=== PATIENT | female | born 1970 | race Caucasian/White ===

== ENCOUNTER 2018-11-20 10:13 | Emergency (ER) | payer MEDICAID ==
--- NOTE | 2018-11-20 11:09 | ED Physician Chart ---
ED Chief Complaint/HPI - Patient Information Date Seen:: 11/20/18 Time Seen:: 10:34 Chief Complaint:: RASH History of Present Illness:: THIS IS A 48 YO FEMALE WHO STATES THAT SHE HAS A RASH THAT STARTED THREE DAYS AGO ON HER LEFT LOWER LEG. SHE DENIES ANY OTHER AREAS OF RASH. SHE DENIES ANY SPECIFIC CONTACT OR FOOD ALLERGIES. SHE ADMITS TO DIABETES AND HYPERTENSION. SHE STATES THAT SHE STOPPED USING METH ABOUT SIX MONTHS AGO. Allergies:: Allergies Allergy/AdvReac Type Severity Reaction Status Date / Time No Known Allergies Allergy Verified 11/20/18 10:28 Vitals:: Vital Signs - 8 hr 11/20/18 10:29 Temp 97.1 F HR 86 RR 16 BP 105/69 O2 Sat % 95 Historian:: Patient Review:: Nurse's Note Reviewed, Old Chart Reviewed ED Review of Systems - Review of Systems General/Constitutional: No fever, No chills, No weight loss, No weakness, No diaphoresis, No edema, No loss of appetite Skin: No skin lesions, Rash, No bruising Head: No headache, No light-headedness Eyes: No loss of vision, No pain, No diplopia ENT: No earache, No nasal drainage, No sore throat, No tinnitus Neck: No neck pain, No swelling, No thyromegaly, No stiffness, No mass noted Cardio Vascular: No chest pain, No palpitations, No PND, No orthopnea, No edema Pulmonary: No SOB, No cough, No sputum, No wheezing GI: No nausea, No vomiting, No diarrhea, No pain, No melena, No hematochezia, No constipation, No hematemesis G/U: No dysuria, No frequency, No hematuria Musculoskeletal: No bone or joint pain, No back pain, No muscle pain Endocrine: No polyuria, No polydipsia Psychiatric: No prior psych history, No depression, No anxiety, No suicidal ideation Hematopoietic: No bruising, No lymphadenopathy Allergic/Immuno: No urticaria, No angioedema Neurological: No syncope, No focal symptoms, No weakness, No paresthesia, No headache, No seizure, No dizziness, No confusion, No vertigo ED Past Medical History - Past Medical History Obtainable: Yes Past Medical History: HTN, DM, Other (SKIN CANCER RECENTLY REMOVED FROM HER UPPER CHEST WALL AREA.) Family History: Diabetes Melitus (MOTHER) Social History: Smoker, Alcohol, No Drug Use, Employed Surgical History: None Psychiatricy History: None Medication: Reviewed Family Medical History - Family Member Father History Unknown: Yes ED Physical Exam - Physical Examination General/Constitutional: Awake, Well-developed, well-nourished, Alert, No distress, GCS 15, Non-toxic appearing, Ambulatory Head: Atraumatic Eyes: Lids, conjuctiva normal, PERRL, EOMI Skin: Nl inspection, No skin lesions, No ecchymosis, Well hydrated, No lymphadenopathy Other Skin comments:: THERE IS RASH ON THE LEFT MEDIAL ASPECT OG THE LOWER LEG AND EXTENDS DOWN TO THE ANKLE AREA. SEVERAL PATCHES OF RINGS. ENMT: External ears, nose nl, Nasal exam nl, Lips, teeth, gums nl Neck: Nontender, Full ROM w/o pain, No JVD, No nuchal rigidity, No bruit, No mass, No stridor Respiratory: Nl effort/Exclusion, Clear to Auscultation, No Wheeze/Rhonchi/Rales Cardio Vascular: RRR, No murmur, gallop, rubs, NL S1 S2 GI: No tenderness/rebounding/guarding, No organomegaly, No hernia, Normal BS's, Nondistended, No mass/bruits, No McBurney tenderness : No CVA tenderness Extremities: No tenderness or effusion, Full ROM, normal strength in all extremities, No edema, Normal digits & nails Neuro/Psych: Alert/oriented, DTR's symmetric, Normal sensory exam, Normal motor strength, Judgement/insight normal, Mood normal, Normal gait, No focal deficits Misc: Normal back, No paraspinal tenderness ED Assessment - Assessment General Assessment: FUNGAL RASH ED Septic Shock - . Is Septic Shock (SBP<90, OR Lactate>4 mmol\L) present?: No - <6hrs of presentation: Vital Signs: Vital Signs - 8 hr 11/20/18 10:29 Temp 97.1 F HR 86 RR 16 BP 105/69 O2 Sat % 95 ED Reassessment (Disposition) - Reassessment Reassessment Condition:: Unchanged - Diagnosis Diagnosis:: RASH OF THE LEFT LOWER LEG (FUNGAL) - Aftercare/Follow up Instructions Aftercare/Follow-Up Instructions:: Counseled pt regarding lab results/diagnosis & need follow up, Refer to Discharge Instructions, Counseled pt & family regarding lab results/diagnosis & need follow up Medication Prescribed:: diflucan, lamisil - Patient Disposition Discharge/Transfer:: Home Condition at Disposition:: Unchanged
== END 2018-11-20 11:25 | disposition home or self-care (01) ==
LOC: ER 10:13
DX: B36.9 Superficial mycosis, unspecified (principal); R21 Rash and other nonspecific skin eruption; I10 Essential (primary) hypertension; E11.9 Type 2 diabetes mellitus without complications; F17.200 Nicotine dependence, unspecified, uncomplicated
CPT/HCPCS: Z7502

== ENCOUNTER 2018-11-29 02:14 | Emergency (ER) | payer MEDICAID ==
--- NOTE | 2018-11-29 02:49 | ED Physician Chart ---
ED Chief Complaint/HPI - Patient Information Date Seen:: 11/29/18 Time Seen:: 02:44 Chief Complaint:: rash History of Present Illness:: 48 yr old female with rash legs buttock very itchy lasting one wk given lamisil by dr harrison and given keflex another time by another doctor without relief pt diabetic on invokana Allergies:: Allergies Allergy/AdvReac Type Severity Reaction Status Date / Time No Known Allergies Allergy Verified 11/29/18 02:24 Vitals:: Vital Signs - 8 hr 11/29/18 02:20 Temp 98.8 F HR 105 RR 18 BP 135/80 O2 Sat % 97 ED Review of Systems - Review of Systems General/Constitutional: No fever, No chills, No weight loss, No weakness, No diaphoresis, No edema, No loss of appetite Skin: Skin lesions Head: No headache, No light-headedness Eyes: No loss of vision, No pain, No diplopia ENT: No earache, No nasal drainage, No sore throat, No tinnitus Neck: No neck pain, No swelling, No thyromegaly, No stiffness, No mass noted Cardio Vascular: No chest pain, No palpitations, No PND, No orthopnea, No edema Pulmonary: No SOB, No cough, No sputum, No wheezing GI: No nausea, No vomiting, No diarrhea, No pain, No melena, No hematochezia, No constipation, No hematemesis G/U: No dysuria, No frequency, No hematuria Musculoskeletal: No bone or joint pain, No back pain, No muscle pain Endocrine: No polyuria, No polydipsia Psychiatric: No prior psych history, No depression, No anxiety, No suicidal ideation Hematopoietic: No bruising, No lymphadenopathy Allergic/Immuno: No urticaria, No angioedema Neurological: No syncope, No focal symptoms, No weakness, No paresthesia, No headache, No seizure, No dizziness, No confusion, No vertigo ED Past Medical History - Past Medical History Past Medical History: DM Family Medical History - Family Member Father History Unknown: Yes ED Physical Exam - Physical Examination General/Constitutional: Awake, Well-developed, well-nourished, Alert, No distress, GCS 15, Non-toxic appearing, Ambulatory Head: Atraumatic Eyes: Lids, conjuctiva normal, PERRL, EOMI Skin: Well hydrated, No lymphadenopathy Other Skin comments:: rash rt lower leg lt arm and buttocks ENMT: External ears, nose nl, Nasal exam nl, Lips, teeth, gums nl Neck: Nontender, Full ROM w/o pain, No JVD, No nuchal rigidity, No bruit, No mass, No stridor Respiratory: Nl effort/Exclusion, Clear to Auscultation, No Wheeze/Rhonchi/Rales Cardio Vascular: RRR, No murmur, gallop, rubs, NL S1 S2 GI: No tenderness/rebounding/guarding, No organomegaly, No hernia, Normal BS's, Nondistended, No mass/bruits, No McBurney tenderness : No CVA tenderness Extremities: No tenderness or effusion, Full ROM, normal strength in all extremities, No edema, Normal digits & nails Neuro/Psych: Alert/oriented, DTR's symmetric, Normal sensory exam, Normal motor strength, Judgement/insight normal, Mood normal, Normal gait, No focal deficits Misc: Normal back, No paraspinal tenderness ED Assessment - Assessment General Assessment: rash dermatitis ED Septic Shock - . Is Septic Shock (SBP<90, OR Lactate>4 mmol\L) present?: No - <6hrs of presentation: Vital Signs: Vital Signs - 8 hr 11/29/18 02:20 Temp 98.8 F HR 105 RR 18 BP 135/80 O2 Sat % 97 ED Reassessment (Disposition) - Reassessment Reassessment:: rash dermatitis - Diagnosis Diagnosis:: as above rash dermatitis - Aftercare/Follow up Instructions Aftercare/Follow-Up Instructions:: Counseled pt regarding lab results/diagnosis & need follow up Medication Prescribed:: benadryl elimite cream - Patient Disposition Discharge/Transfer:: Home Condition at Disposition:: Stable
== END 2018-11-29 02:50 | disposition home or self-care (01) ==
LOC: ER 02:14
DX: L30.9 Dermatitis, unspecified (principal); R21 Rash and other nonspecific skin eruption; E11.9 Type 2 diabetes mellitus without complications

== ENCOUNTER 2018-11-30 20:11 | Emergency (ER) | payer MEDICAID ==
--- NOTE | 2018-11-30 21:00 | ED Physician Chart ---
ED Chief Complaint/HPI - Patient Information Date Seen:: 11/30/18 Time Seen:: 20:57 Chief Complaint:: Cellulitis and diabetes History of Present Illness:: 48 yo female was brought by police officers for "ok to book" evaluation. Pt had right lower leg, left arm and buttocks rashes which was treated with anti- fungal medications without improvement. Pt was recently prescribed Keflex by another physician. Pt has been taking Keflex for 2 days. Pt was seen here by ER physician Dr. Porter yesterday and was prescribed benadryl cream. Pt had diabetes for 8 years on Invokana and metformin. Pt stated that her most recent HbA1c was 8.9%. Allergies:: Allergies Allergy/AdvReac Type Severity Reaction Status Date / Time No Known Allergies Allergy Verified 11/29/18 02:24 Vitals:: Vital Signs - 8 hr 11/30/18 20:35 Temp 98.4 F HR 101 RR 19 BP 138/95 O2 Sat % 97 ED Review of Systems - Review of Systems General/Constitutional: No fever, No chills Skin: Skin lesions Head: No headache Eyes: No pain ENT: No nasal drainage Neck: No neck pain Cardio Vascular: No chest pain Pulmonary: No SOB GI: No nausea, No vomiting Musculoskeletal: No bone or joint pain Neurological: No focal symptoms ED Past Medical History - Past Medical History Past Medical History: DM Social History: Smoker, No Alcohol, No Drug Use Family Medical History - Family Member Father History Unknown: Yes ED Physical Exam - Physical Examination General/Constitutional: Awake, Alert Head: Atraumatic Eyes: PERRL Other Skin comments:: Right lower leg, left arm and buttocks rashes, erythematous, itchy Neck: No nuchal rigidity Respiratory: No Wheeze/Rhonchi/Rales Cardio Vascular: RRR, No murmur, gallop, rubs, NL S1 S2 GI: No tenderness/rebounding/guarding Extremities: normal strength in all extremities Neuro/Psych: No focal deficits ED Labs/Radiology/EKG Results - Lab Results Results: Laboratory Last Values POC Glucose 145 MG/DL (70 - 105) H 11/30/18 21:10 ED Assessment - Assessment General Assessment: DM II Fungal dermatitis/cellulitis Assessment/Comments:: Finger glucose level Keflex 500mg PO x 1 Benadryl 25mg PO x 1 Ok to book ED Septic Shock - . Is Septic Shock (SBP<90, OR Lactate>4 mmol\\L) present?: No - <6hrs of presentation: Vital Signs: Vital Signs - 8 hr 11/30/18 20:35 Temp 98.4 F HR 101 RR 19 BP 138/95 O2 Sat % 97 ED Reassessment (Disposition) - Reassessment Reassessment Condition:: Improved - Patient Disposition Discharge/Transfer:: Group Home/Long Term
== END 2018-11-30 21:28 | disposition still patient (30) ==
LOC: ER 20:11
DX: L03.115 Cellulitis of right lower limb (principal); L03.114 Cellulitis of left upper limb; L03.317 Cellulitis of buttock; B36.9 Superficial mycosis, unspecified; E11.9 Type 2 diabetes mellitus without complications; F17.200 Nicotine dependence, unspecified, uncomplicated
CPT/HCPCS: 82948-90; Z7502; Z7610

== ENCOUNTER 2019-04-07 17:40 | Emergency (ER) | payer MEDICAID ==
--- NOTE | 2019-04-07 18:13 | ED Physician Chart ---
ED Chief Complaint/HPI - Patient Information Date Seen:: 04/07/19 Time Seen:: 18:00 Chief Complaint:: rash History of Present Illness:: [place] and last night developed a pruritic rash. First lesion she noted was on the superior chest. Patient is not aware of coming in contact with any plants while hiking. Allergies:: Allergies Allergy/AdvReac Type Severity Reaction Status Date / Time No Known Allergies Allergy Verified 11/29/18 02:24 Vitals:: Vital Signs - 8 hr 04/07/19 17:56 Temp 98.2 F HR 99 RR 18 BP 141/87 O2 Sat % 96 Historian:: Patient Review:: Nurse's Note Reviewed ED Review of Systems - Review of Systems General/Constitutional: No fever, No chills Skin: Rash Head: No headache Eyes: No loss of vision ENT: No earache Neck: No neck pain, No swelling Cardio Vascular: No chest pain, No palpitations Pulmonary: No SOB GI: No nausea, No vomiting, No diarrhea G/U: No dysuria Musculoskeletal: No bone or joint pain Endocrine: No polyuria Psychiatric: No prior psych history Hematopoietic: No bruising Allergic/Immuno: No urticaria Neurological: No syncope ED Past Medical History - Past Medical History Past Medical History: HTN, DM, Asthma/COPD, Other (anxiety) Family History: None Social History: Smoker, Alcohol, Other (smokes half a pack of cigarettes a day and drinks 1 pint of vodka per day) Surgical History: , other (kidney stone right kidney; 2 sections) Family Medical History - Family Member Father History Unknown: Yes Other Medical History: Adopted. ED Physical Exam - Physical Examination General/Constitutional: Awake, Well-developed, well-nourished, Alert, No distress Head: Atraumatic Eyes: Lids, conjuctiva normal, PERRL Other Skin comments:: 1 cm hyperpigmented plaque over the midline superior chest; few maculo-papules on the torso. Sunburn superior back. ENMT: External ears, nose nl, TM canals nl, Nasal exam nl, Lips, teeth, gums nl Neck: No nuchal rigidity Respiratory: Nl effort/Exclusion, Clear to Auscultation Cardio Vascular: RRR GI: No tenderness/rebounding/guarding, No organomegaly, No hernia, Nondistended : No CVA tenderness Extremities: Normal digits & nails Neuro/Psych: No focal deficits ED Septic Shock - . Is Septic Shock (SBP<90, OR Lactate>4 mmol\L) present?: No - <6hrs of presentation: Vital Signs: Vital Signs - 8 hr 04/07/19 17:56 Temp 98.2 F HR 99 RR 18 BP 141/87 O2 Sat % 96 ED Reassessment (Disposition) - Reassessment Reassessment Condition:: Unchanged - Diagnosis Diagnosis:: Maculopapular rash; sunburn - Aftercare/Follow up Instructions Medication Prescribed:: Atarax 25 mg #20 to take 1 4 times a day - Patient Disposition Discharge/Transfer:: Home Condition at Disposition:: Stable, Unchanged
== END 2019-04-07 18:43 | disposition home or self-care (01) ==
LOC: ER 17:40
DX: R21 Rash and other nonspecific skin eruption (principal); L55.9 Sunburn, unspecified; I10 Essential (primary) hypertension; E11.9 Type 2 diabetes mellitus without complications; J44.9 Chronic obstructive pulmonary disease, unspecified; F17.210 Nicotine dependence, cigarettes, uncomplicated; Z98.890 Other specified postprocedural states
CPT/HCPCS: Z7502